=== PATIENT | male | born 1980 | race Caucasian/White ===

== ENCOUNTER 2023-07-03 19:58 | Emergency (ER) | payer BC ==
[~2023-07-03] VITALS: Ht 175.3 cm; Wt 80.0 kg
[2023-07-03 20:01] VITALS: BP 125/82; PULSE 87; RESP 20; TEMP 96.5; O2SAT 96
== END 2023-07-04 02:39 | disposition left against medical advice (07) ==
LOC: ER 19:58
DX: Z53.21 Procedure and treatment not carried out due to patient leaving prior to being seen by health care provider (principal)
CPT/HCPCS: 99281